=== PATIENT | male | born 1945 | race Caucasian/White ===

== ENCOUNTER → 2016-09-03 | Outpatient (CLI) | payer OTHER ==
[~2016-09-03] VITALS: Ht 175.3 cm; Wt 105.4 kg
[~2016-09-03] MED LIST: ASPI81TA85 PO; FLOM5CAP PO; GABA300C3 PO; GLIM2TA PO; HumaLOG INSULIN (NovoLOG) PER UNIT SC ONE; JANU100T PO; LIDOCAINE 2% INJ 100 MG/5 ML SDV (FOR ANES.) As Ordered ONE; MAGN1TAB25 PO; METO50TA2 PO; MSIR30TA PO; NS 1,000 ML IV SCH; OXYC1TAB55 PO; PANT20TA PO; PRAV40TA2 PO; PROPOFOL 500 MG/50 ML VIAL As Ordered ONE; PROS5TAB PO; WELL100T2 PO; ZETI10TA2 PO
--- NOTE | 2016-09-03 09:35 | ROOR ---
Patient Name: Mike Bañuelos Procedure Date: 09/03/2016 9:17 AM Date of : 1945 Age: 71 Room: [facility] Gender: Male Note Status: Finalized Procedure: Colonoscopy Indications: Positive fecal immunochemical test Providers: Piter WEI MD Referring MD: YOBANY Rivera PA-C Requesting Provider: Medicines: Monitored Anesthesia Care Complications: No immediate complications. Procedure: Pre-Anesthesia Assessment: - The heart rate, respiratory rate, oxygen saturations, blood pressure, adequacy of pulmonary ventilation, and response to care were monitored throughout the procedure. The Colonoscope was introduced through the anus and advanced to the cecum, identified by appendiceal orifice and ileocecal valve. The colonoscopy was performed without difficulty. The patient tolerated the procedure well. The quality of the bowel preparation was good. Findings: The perianal and digital rectal examinations were normal. (Exam: Complete, Prep: Good or Excellent.) Three sessile polyps were found in the sigmoid colon, ascending colon and cecum. The polyps were diminutive in size. These polyps were removed with a cold snare. Resection and retrieval were complete. A few medium-mouthed diverticula were found in the sigmoid colon. Internal hemorrhoids were found during retroflexion. The hemorrhoids were moderate. The exam was otherwise without abnormality on direct and retroflexion views. Impression: - Three diminutive polyps in the sigmoid colon, in the ascending colon and in the cecum, removed with a cold snare. Resected and retrieved. - Diverticulosis in the sigmoid colon. - Internal hemorrhoids. - The examination was otherwise normal on direct and retroflexion views. Recommendation: - Await pathology results. - If the pathology report reveals adenomatous tissue, then repeat the colonoscopy for surveillance in 3 years. Piter Wei MD Piter WEI MD 09/03/2016 9:34:50 AM This report has been signed electronically. Number of Addenda: 0 Note Initiated On: 09/03/2016 9:17 AM Estimated Blood Loss: Estimated blood loss: none.
[2016-09-03 10:00] VITALS: BP 136/81
== END | disposition home or self-care (01) ==
LOC: M OPP 08:08
PROVIDERS: ATTEND Internal Medicine Gastroenterology
DX: R19.5 Other fecal abnormalities (principal); D12.5 Benign neoplasm of sigmoid colon; D12.2 Benign neoplasm of ascending colon; D12.0 Benign neoplasm of cecum; I25.10 Atherosclerotic heart disease of native coronary artery without angina pectoris; I25.2 Old myocardial infarction; I10 Essential (primary) hypertension; E78.5 Hyperlipidemia, unspecified; E11.9 Type 2 diabetes mellitus without complications; R12 Heartburn; M54.9 Dorsalgia, unspecified; Z85.828 Personal history of other malignant neoplasm of skin; N40.1 Benign prostatic hyperplasia with lower urinary tract symptoms; Z87.891 Personal history of nicotine dependence; Z95.5 Presence of coronary angioplasty implant and graft; Z95.1 Presence of aortocoronary bypass graft; Z79.84 Long term (current) use of oral hypoglycemic drugs; Z79.82 Long term (current) use of aspirin; Z79.899 Other long term (current) drug therapy

== ENCOUNTER → 2019-12-26 | Outpatient (REF) | payer MEDICARE ==
[~2019-12-26] MED LIST changes: +FLOM0.4C39 PO; -FLOM5CAP PO; +GABA-843 PO; -GABA300C3 PO; -GLIM2TA PO; +GLIM2TAB29 PO; -HumaLOG INSULIN (NovoLOG) PER UNIT SC ONE; -LIDOCAINE 2% INJ 100 MG/5 ML SDV (FOR ANES.) As Ordered ONE; -MAGN1TAB25 PO; +MAGN1TAB26 PO; -METO50TA2 PO; +METO50TA7 PO; -NS 1,000 ML IV SCH; +OXYC-403 PO; -OXYC1TAB55 PO; -PANT20TA PO; +PANT20TA2 PO; -PROPOFOL 500 MG/50 ML VIAL As Ordered ONE; +ZETI10TA16 PO; -ZETI10TA2 PO
== END ==
LOC: M LAB REF 08:29
PROVIDERS: ATTEND Dermatology
DX: C44.320 Squamous cell carcinoma of skin of unspecified parts of face (principal)

== ENCOUNTER → 2020-02-05 | Outpatient (REF) | payer MEDICARE ==
[~2020-02-05] MED LIST changes: -ASPI81TA85 PO; +ASPI81TA86 PO; -PANT20TA2 PO; +PANT20TA6 PO
== END ==
LOC: M LAB REF 19:19
PROVIDERS: ATTEND Dermatology
DX: D04.4 Carcinoma in situ of skin of scalp and neck (principal)

== ENCOUNTER → 2020-03-21 | Outpatient (CLI) | payer MEDICARE ==
--- NOTE | 2020-03-28 10:41 | ECHO ---
DATE OF PROCEDURE: 03/21/2020 Age: 75 Gender: Male REFERRING PROVIDER: YOBANY Powell PATIENT LOCATION: Outpatient. 2D MEASUREMENTS: IVS 1.1 cm LV 6.0 cm LVPW 1.0 cm LA 4.3 cm Aorta 3.4 cm IVC 1.6 cm DOPPLER MEASUREMENT Peak velocity across the aortic valve 1.1 m/s Peak velocity across the LVOT 1.1 m/s Mitral E 0.9 Mitral A 0.9 with a ratio of 1.0 Maximum tricuspid valve velocity 2.0 m/s 2D COMMENTS: 1. Subjectively the left ventricle appears to be normal in size. Left ventricular wall thickness is normal, as well as global left ventricular systolic function. The estimated left ventricular systolic ejection fraction is estimated at 50% to 55%. 2. Mildly enlarged left atrium. Normal right atrium. The right ventricle was not well visualized. 3. The atrial septum appeared to be normal without evidence of defect or shunt. 4. Normal aortic root. 5. A small pericardial effusion was noted, no evidence of cardiac tamponade. 6. Mildly calcified aortic valve with normal leaflet excursion. Mildly calcified mitral annulus with normal anterior mitral valve leaflet motion. Normal tricuspid valve. The pulmonic valve and proximal pulmonary artery branches were not well visualized. 7. The inferior vena cava was normal in size, central venous pressure is most likely normal. 8. Doppler detects mild aortic regurgitation, mild mitral regurgitation, and trace tricuspid regurgitation. The calculated pulmonary artery systolic pressure was normal. Abnormal relaxation pattern was noted across the mitral valve annulus consistent with features of grade 1 left ventricular diastolic dysfunction. IMPRESSION: 1. Low normal global left ventricular systolic function. There are some features of grade 1 left ventricular diastolic dysfunction manifested by abnormal relaxation. 2. Aortic valve sclerosis with mild aortic regurgitation, but no aortic stenosis. 3. Mildly enlarged left atrium with mitral annulus calcification and mild mitral regurgitation. 4. Trace tricuspid regurgitation with a normal calculated pulmonary artery systolic pressure. 5. A small pericardial effusion was noted. No evidence of cardiac tamponade. 6. Global was reported to be -15.7%, slightly abnormal putting the patient at higher risk to develop heart failure. MTDD
== END ==
LOC: M CARPUL 08:23
PROVIDERS: ATTEND Physician Assistant Medical
DX: R60.9 Edema, unspecified (principal); I08.3 Combined rheumatic disorders of mitral, aortic and tricuspid valves; I31.3 Pericardial effusion (noninflammatory)

== ENCOUNTER → 2021-09-02 | Outpatient (CLI) | payer MEDICARE ==
[~2021-09-02] MED LIST changes: +GABA-282 PO; -GABA-843 PO
== END ==
LOC: M RAD 12:12
PROVIDERS: ATTEND Physician Assistant Medical
DX: Z12.2 Encounter for screening for malignant neoplasm of respiratory organs (principal); Z87.891 Personal history of nicotine dependence; N18.2 Chronic kidney disease, stage 2 (mild)

== ENCOUNTER → 2021-09-18 | Outpatient (CLI) | payer MEDICARE ==
[~2021-09-18] MED LIST changes: +ISOVUE-370 76% 100ML VIAL As Ordered ONE
== END ==
LOC: M RAD 08:08
PROVIDERS: ATTEND Physician Assistant Medical
DX: R93.429 Abnormal radiologic findings on diagnostic imaging of unspecified kidney (principal)
CPT/HCPCS: 74178; Q9967

== ENCOUNTER → 2021-10-07 | Outpatient (CLI) | payer MEDICARE ==
[~2021-10-07] MED LIST changes: -ISOVUE-370 76% 100ML VIAL As Ordered ONE
== END ==
LOC: M CARPUL 07:58
PROVIDERS: ATTEND Physician Assistant Medical
DX: R05.9 Cough, unspecified (principal); Z87.891 Personal history of nicotine dependence

== ENCOUNTER → 2022-10-20 | Outpatient (CLI) | payer MEDICARE ==
[~2022-10-20] MED LIST changes: -OXYC-403 PO; +OXYC-673 PO
== END ==
LOC: M RAD 07:36
PROVIDERS: ATTEND Physician Assistant Medical
DX: Z12.2 Encounter for screening for malignant neoplasm of respiratory organs (principal); Z87.891 Personal history of nicotine dependence; I70.0 Atherosclerosis of aorta; I25.84 Coronary atherosclerosis due to calcified coronary lesion; Z98.890 Other specified postprocedural states; M51.34 Other intervertebral disc degeneration, thoracic region

== ENCOUNTER → 2023-11-16 | Outpatient (REF) | payer MEDICARE ==
[~2023-11-16] MED LIST changes: +EZET10TA58 PO; +FINA-48 PO; -PROS5TAB PO; -ZETI10TA16 PO
== END ==
LOC: M SFHCDERM 17:59
PROVIDERS: ATTEND Physician Assistant
DX: C44.222 Squamous cell carcinoma of skin of right ear and external auricular canal (principal)

== ENCOUNTER → 2024-03-19 | Outpatient (CLI) | payer MEDICARE ==
[~2024-03-19] MED LIST changes: +GABA-1172 PO; -GABA-282 PO
== END ==
LOC: M RAD 13:15
PROVIDERS: ATTEND Physician Assistant Medical
DX: Z12.2 Encounter for screening for malignant neoplasm of respiratory organs (principal); Z87.891 Personal history of nicotine dependence; I25.10 Atherosclerotic heart disease of native coronary artery without angina pectoris; J98.4 Other disorders of lung

== ENCOUNTER → 2024-04-18 | Outpatient (REF) | payer MEDICARE ==
[2024-04-18 17:53] LABS: CALCIUM LEVEL 9.5 MG/DL (8.3-10.6); CREATININE FOR GFR 1.46 MG/DL (0.70-1.30); GLOMERULAR FILTRATION RATE 49.7 (>42); POTASSIUM SERUM 5.1 MMOL/L (3.5-5.1)
== END ==
LOC: M SFHCADAM 11:29
PROVIDERS: ATTEND Physician Assistant Medical
DX: I11.9 Hypertensive heart disease without heart failure (principal)

== ENCOUNTER → 2024-09-27 | Outpatient (REF) | payer MEDICARE ==
[2024-09-27 15:29] LABS: BASO % 0.4 % (0.0-1.0); EOS # 0.2 10^3/uL (0.0-0.5); HEMATOCRIT 38.4 % (42.0-52.0); HEMOGLOBIN 12.5 g/dl (13.5-17.5); HEMOGLOBIN A1c 7.6 % (4.0-6.0); LYMPH # 1.2 10^3/uL (1.5-5.0); LYMPH % 15.6 % (24.0-44.0); MEAN CORPUSCULAR HEMOGLOBIN 28.3 pg (27.0-33.0); MEAN CORPUSCULAR HGB CONC 32.6 g/dl (32.0-36.5); MEAN CORPUSCULAR VOLUME 87.1 fl (80.0-96.0); MONO # 0.8 10^3/uL (0.0-0.8); MONO % 11.1 % (2.0-8.0); NEUTROPHILS # 5.2 10^3/uL (1.5-8.5); PLATELET COUNT, AUTOMATED 240 10^3/uL (150-450); RED BLOOD COUNT 4.41 10^6/uL (4.30-6.10); WHITE BLOOD COUNT 7.4 10^3/uL (4.0-10.0)
[2024-09-27 15:40] LABS: THYROID STIMULATING HORMONE 3.126 uIU/ML (0.55-4.78)
[2024-09-27 15:41] LABS: TOTAL 25(OH) VITAMIN D 26.5 NG/ML (20.0-100.0)
[2024-09-27 15:42] LABS: ALBUMIN 3.6 G/DL (3.2-5.2); BILIRUBIN,TOTAL 0.4 MG/DL (0.3-1.2); CALCIUM LEVEL 9.3 MG/DL (8.3-10.6); CHOLESTEROL RISK RATIO 4.98 (<5); CREATININE FOR GFR 1.29 MG/DL (0.70-1.30); GLOMERULAR FILTRATION RATE 56.8 (>42); HDL CHOLESTEROL 28.7 MG/DL (>40); LDL CHOLESTEROL 63.9 MG/DL (<100); NON-HDL-C 114.3 MG/DL; POTASSIUM SERUM 4.5 MMOL/L (3.5-5.1); TOTAL PROTEIN 6.8 G/DL (5.7-8.2)
== END ==
LOC: M SFHCADAM 08:09
PROVIDERS: ATTEND Physician Assistant Medical
DX: I11.9 Hypertensive heart disease without heart failure (principal); E11.22 Type 2 diabetes mellitus with diabetic chronic kidney disease; I25.810 Atherosclerosis of coronary artery bypass graft(s) without angina pectoris; Z79.899 Other long term (current) drug therapy

== ENCOUNTER → 2024-10-03 | Outpatient (REF) | payer MEDICARE ==
[2024-10-03 13:23] LABS: IRON (FE) 78 UG/DL (65-175); PERCENT SATURATION 19.8 % (19.7-50.0); TOTAL IRON BINDING CAPACITY 393 UG/DL (250-425)
[2024-10-03 13:25] LABS: FOLATE > 24.0 NG/ML (>5.4)
[2024-10-03 13:27] LABS: VITAMIN B12 LEVEL 606 PG/ML (211-911)
== END ==
LOC: M SFHCADAM 10:08
PROVIDERS: ATTEND Physician Assistant Medical
DX: E55.9 Vitamin D deficiency, unspecified (principal); D64.9 Anemia, unspecified

== ENCOUNTER → 2025-02-27 | Outpatient (REF) | payer MEDICARE ==
[~2025-02-27] MED LIST changes: -FLOM0.4C39 PO; +MORP-137 PO; -MSIR30TA PO; -PRAV40TA2 PO; +PRAV40TA85 PO; +TAMS-18 PO
== END ==
LOC: M LABDRWAD 14:38
PROVIDERS: ATTEND Nurse Practitioner
DX: N40.1 Benign prostatic hyperplasia with lower urinary tract symptoms (principal)

== ENCOUNTER → 2025-02-27 | Outpatient (REF) | payer MEDICARE ==
[2025-02-27 14:21] LABS: BASO # 0.0 10^3/uL (0.0-0.2); BASO % 0.5 % (0.0-1.0); EOS # 0.2 10^3/uL (0.0-0.5); EOS % 2.1 % (0.0-3.0); LYMPH # 1.1 10^3/uL (1.5-5.0); LYMPH % 14.1 % (24.0-44.0); MONO # 0.9 10^3/uL (0.0-0.8); MONO % 10.9 % (2.0-8.0); NEUTROPHILS # 5.7 10^3/uL (1.5-8.5); NEUTROPHILS % 71.6 % (36.0-66.0); PLATELET COUNT, AUTOMATED 298 10^3/uL (150-450)
[2025-02-27 14:25] LABS: PROSTATIC SPECIFIC AG MONITOR 0.41 NG/ML (< 4.00)
[2025-02-27 14:30] LABS: FREE T4 1.27 NG/DL (0.89-1.76)
[2025-02-27 14:31] LABS: ALT/SGPT 20 U/L (7.0-40); AST/SGOT 11 U/L (<34); CALCIUM LEVEL 9.7 MG/DL (8.3-10.6); CARBON DIOXIDE LEVEL 26 MMOL/L (20-31); CHLORIDE LEVEL 103 MMOL/L (98-107); CHOLESTEROL LEVEL 151 MG/DL (<200); CHOLESTEROL RISK RATIO 4.58 (<5); CREATININE FOR GFR 1.63 MG/DL (0.70-1.30); GLOMERULAR FILTRATION RATE 42.6 (>42); LDL CHOLESTEROL 73.3 MG/DL (<100); NON-HDL-C 118.1 MG/DL; POTASSIUM SERUM 5.1 MMOL/L (3.5-5.1); SODIUM LEVEL 141 MMOL/L (136-145); TOTAL 25(OH) VITAMIN D 39.6 NG/ML (20.0-100.0); TRIGLYCERIDES LEVEL 224 MG/DL (<150)
[2025-02-27 14:33] LABS: ESTIMATED AVERAGE GLUCOSE 180.0 MG/DL (60-110)
[2025-02-27 14:48] LABS: CREATININE, URINE 134.3 MG/DL; MALB URINE SIEMENS 67.0 MG/L; MAU/CREAT RATIO 49.8 MCG/MG (0.0-30.0)
[2025-02-27 14:51] LABS: VITAMIN B12 LEVEL > 2000 PG/ML (211-911)
== END ==
LOC: M SFHCADAM 08:55
PROVIDERS: ATTEND Physician Assistant Medical
DX: E11.22 Type 2 diabetes mellitus with diabetic chronic kidney disease (principal); E78.2 Mixed hyperlipidemia; E55.9 Vitamin D deficiency, unspecified; N40.0 Benign prostatic hyperplasia without lower urinary tract symptoms; F09 Unspecified mental disorder due to known physiological condition

== ENCOUNTER → 2025-03-15 | Outpatient (CLI) | payer MEDICARE | LOC: M PLAIMG 07:58 | PROVIDERS: ATTEND Physician Assistant Medical | DX: G31.9 Degenerative disease of nervous system, unspecified (principal); F09 Unspecified mental disorder due to known physiological condition; Z81.8 Family history of other mental and behavioral disorders; I67.89 Other cerebrovascular disease ==

== ENCOUNTER → 2025-04-11 | Outpatient (CLI) | payer MEDICARE | LOC: M ADAMS 10:39 | PROVIDERS: ATTEND Physician Assistant Medical | DX: M51.360 Other intervertebral disc degeneration, lumbar region with discogenic back pain only (principal) ==

== ENCOUNTER → 2025-06-05 | Outpatient (CLI) | payer MEDICARE ==
[2025-06-05 18:20] LABS: BASO # 0.0 10^3/uL (0.0-0.2); BASO % 0.4 % (0.0-1.0); EOS # 0.1 10^3/uL (0.0-0.5); EOS % 0.9 % (0.0-3.0); LYMPH # 0.8 10^3/uL (1.5-5.0); LYMPH % 9.1 % (24.0-44.0); MONO # 0.6 10^3/uL (0.0-0.8); MONO % 6.4 % (2.0-8.0); NEUTROPHILS # 7.5 10^3/uL (1.5-8.5); NEUTROPHILS % 82.4 % (36.0-66.0); PLATELET COUNT, AUTOMATED 338 10^3/uL (150-450)
[2025-06-05 18:45] LABS: ALT/SGPT 13 U/L (7.0-40); AST/SGOT 10 U/L (<34); CALCIUM LEVEL 8.9 MG/DL (8.3-10.6); CARBON DIOXIDE LEVEL 26 MMOL/L (20-31); CHLORIDE LEVEL 102 MMOL/L (98-107); CREATININE FOR GFR 1.66 MG/DL (0.70-1.30); GLOMERULAR FILTRATION RATE 41.7 (>42); POTASSIUM SERUM 4.5 MMOL/L (3.5-5.1); SODIUM LEVEL 139 MMOL/L (136-145)
[2025-06-05 18:49] LABS: THYROXINE (T4) 9.2 UG/DL (4.5-10.9)
[2025-06-05 18:50] LABS: T UPTAKE 30.0 % (22.5-37.0)
[2025-06-05 18:52] LABS: VITAMIN B12 LEVEL > 2000 PG/ML (211-911)
[2025-06-10 19:33] LABS: VITAMIN E(ALPHA TOCOPHEROL) 11.5 mg/L (5.7-19.9); VITAMIN E(GAMMA TOCOPHEROL) < 1.0 mg/L (<=4.3)
== END ==
LOC: M LABDRWAD 13:18
PROVIDERS: ATTEND Psychiatry & Neurology Neurology
DX: R41.3 Other amnesia (principal); E07.9 Disorder of thyroid, unspecified; E53.8 Deficiency of other specified B group vitamins